=== PATIENT | male | born 1990 | race Caucasian/White ===

== ENCOUNTER 2021-11-04 22:56 | Emergency (ER) | payer MEDICAID ==
[~2021-11-04] VITALS: Ht 190.5 cm; Wt 113.6 kg
[2021-11-04 23:01] VITALS: BP 136/96
== END 2021-11-05 01:11 | disposition home or self-care (01) ==
LOC: ER 22:57
DX: F29 Unspecified psychosis not due to a substance or known physiological condition (principal); F31.9 Bipolar disorder, unspecified; F20.9 Schizophrenia, unspecified; F12.90 Cannabis use, unspecified, uncomplicated; F17.210 Nicotine dependence, cigarettes, uncomplicated; F41.9 Anxiety disorder, unspecified
CPT/HCPCS: 99281; 99283; 99285